=== PATIENT | male | born 1990 | race Caucasian/White ===

== ENCOUNTER 2021-11-04 07:25 | Emergency (ER) | payer SELFPAY ==
[~2021-11-04] VITALS: Ht 177.8 cm; Wt 100.0 kg
[2021-11-04] MEDS ORDERED: NORVASC 5MG5 MG/TAB PO (07:55)
[2021-11-04 08:14] VITALS: BP 135/90; PULSE 64
== END 2021-11-04 08:14 | disposition home or self-care (01) ==
LOC: COL.ER 07:25 → EDSEX 07:26 → COL.ER 07:26
DX: I10 Essential (primary) hypertension (principal); F17.290 Nicotine dependence, other tobacco product, uncomplicated

== ENCOUNTER 2022-02-04 12:31 | Emergency (ER) | payer SELFPAY ==
[~2022-02-04] VITALS: Ht 177.8 cm; Wt 100.0 kg
[~2022-02-04 12:31] MED LIST: NORVASC 5MG5 MG/TAB PO
[2022-02-04 13:07] VITALS: BP 164/101; TEMP 98.1
[2022-02-04] MEDS ORDERED: PEN-VEE K500 MG PO (13:35)
[2022-02-04] MEDS ORDERED: NORCO 325 MG-51 TAB PO ×2 (13:35→14:58)
[2022-02-04 13:44] VITALS: PULSE 62
[2022-02-04] MEDS ORDERED: ZOFRAN ODT4 MG PO (15:00)
== END 2022-02-04 13:44 | disposition home or self-care (01) ==
LOC: COL.ER 12:31
DX: K03.81 Cracked tooth (principal); Z87.891 Personal history of nicotine dependence; Z28.311 Partially vaccinated for COVID-19